=== PATIENT | female | born 1955 | race Caucasian/White ===

== ENCOUNTER 2022-08-01 06:30 | Emergency (ER) | payer BC ==
[~2022-08-01] VITALS: Ht 170.2 cm; Wt 77.1 kg
[2022-08-01] MEDS ORDERED: ZESTRIL5 MG (06:36)
[2022-08-01] MEDS ORDERED: ELIQUIS5 MG (06:36)
[2022-08-01] MEDS ORDERED: BACTRIM DS TAB1 EACH PO (11:53)
== END 2022-08-01 12:14 | disposition home or self-care (01) ==
LOC: ER 06:30
DX: R10.9 Unspecified abdominal pain (principal); N39.0 Urinary tract infection, site not specified; R11.10 Vomiting, unspecified; R11.0 Nausea; I10 Essential (primary) hypertension